=== PATIENT | male | born 1995 ===

== ENCOUNTER 2018-02-15 07:37 | Emergency (ER) | payer MEDICAID, OTHER ==
[2018-02-15 07:47] VITALS: BP 123/80; PULSE 99; RESP 18; TEMP 99.8; O2SAT 100
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
== END 2018-02-15 08:43 | disposition left against medical advice (07) ==
LOC: C.ER 07:37
DX: S01.81XA Laceration without foreign body of other part of head, initial encounter (principal); Y08.89XA Assault by other specified means, initial encounter; Y92.9 Unspecified place or not applicable